=== PATIENT | female | born 1985 ===

== ENCOUNTER 2022-12-14 12:30 | Day surgery (SDC) | payer OTHER ==
[2022-12-14 12:40] LABS: HEMATOCRIT 38.9 % (36.0-45.00); HEMOGLOBIN 13.1 g/dL (12.0-15.00); MEAN CELL VOLUME 89.2 fL (80.00-100.00); MEAN CORPUSCULAR HGB CONC 33.6 g/dl (32.0-36.0); PLATELET COUNT 320 K/uL (150-450); RED BLOOD COUNT 4.37 M/uL (4.00-6.00); RED CELL DISTRIBUTION WIDTH 13.9 % (11.5-14.5)
[2022-12-14 13:18] LABS: INR 1.07; PARTIAL THROMBOPLASTIN TIME 28.4 SECONDS (22.0-34.0); PROTHROMBIN TIME 11.2 SECONDS (9.0-11.5)
== END 2022-12-14 17:50 | disposition home or self-care (01) ==
LOC: CIR.AMB 12:30
PROVIDERS: ATTEND Obstetrics & Gynecology Maternal & Fetal Medicine
DX: O02.1 Missed abortion (principal); O72.2 Delayed and secondary postpartum hemorrhage; Z20.822 Contact with and (suspected) exposure to COVID-19

== ENCOUNTER 2024-02-10 07:35 | Outpatient (CLI) | payer OTHER | END 2024-02-10 08:40 | disposition home or self-care (01) | LOC: NST 07:35 | PROVIDERS: ATTEND Obstetrics & Gynecology Gynecology | DX: Z34.83 Encounter for supervision of other normal pregnancy, third trimester (principal) ==

== ENCOUNTER 2024-02-13 07:59 | Outpatient (CLI) | payer OTHER | END 2024-02-13 08:37 | disposition home or self-care (01) | LOC: NST 07:59 | PROVIDERS: ATTEND Obstetrics & Gynecology Gynecology | DX: Z34.83 Encounter for supervision of other normal pregnancy, third trimester (principal) ==

== ENCOUNTER 2024-02-13 14:45 | Inpatient (IN) | payer OTHER ==
[~2024-02-13] VITALS: Ht 160 cm; Wt 68.0 kg
[2024-02-18 16:42] VITALS: BP 130/83
[2024-02-18 17:37] LABS: HEMATOCRIT 34.4 % (36.0-45.00); HEMOGLOBIN 11.9 g/dL (12.0-15.00); MEAN CELL VOLUME 88.2 fL (80.00-100.00); MEAN CORPUSCULAR HEMOGLOBIN 30.5 pg (27.00-32.0); MEAN CORPUSCULAR HGB CONC 34.6 g/dl (32.0-36.0); PLATELET COUNT 276 K/uL (150-450); RED CELL DISTRIBUTION WIDTH 13.9 % (11.5-14.5)
[2024-02-18 17:56] LABS: INR < 0.93; PROTHROMBIN TIME 10.1 SECONDS (9.0-11.5)
[2024-02-18 18:01] LABS: ALBUMIN 2.8 gm/dL (3.4-5.0); BILIRUBIN TOTAL 0.23 mg/dL (0.3-1.2); CREATININE SERUM 0.48 mg/dL (0.55-1.02); GFR 144.74; GLOBULINA 3.8 G/DL (2.4-3.5); POTASSIUM 4.26 mEq/L (3.5-5.1); TOTAL PROTEIN 6.6 gm/dL (6.4-8.2)
[2024-02-18] MEDS ORDERED: OBSTETRIX ONE1 EAC1 PO (20:38)
[2024-02-18] MEDS ORDERED: MISOPROSTOL 25 MCG TABLET VAG ONE (22:45)
[2024-02-18] MEDS ORDERED: RINGERS SOLUTION,LACTATED 1,000 ML IV SCH (23:15)
[2024-02-18 23:35] VITALS: BP 122/76
[2024-02-19 03:28] VITALS: BP 128/79
[2024-02-19 07:29] VITALS: BP 125/78
[2024-02-19] MEDS ORDERED: OXYTOCIN 500 ML IV SCH (09:00)
[2024-02-19 11:25] VITALS: BP 113/82
[2024-02-19] MEDS ORDERED: CEFAZOLIN SODIUM 1,000 MG VIAL IV SCH (16:30)
[2024-02-19] MEDS ORDERED: CITRIC ACID/SODIUM CITRATE 30 ML BLIST.PACK PO SCH (16:30)
[2024-02-19 16:38] VITALS: BP 104/57
[2024-02-19] MEDS ORDERED: MEPERIDINE HCL 25 MG/ML AMPUL IV ONE (21:40)
[2024-02-19] MEDS ORDERED: OXYTOCIN 10 UNITS/ML VIAL IV ONE (21:45)
[2024-02-19] MEDS ORDERED: ERYTHROMYCIN BASE OPHT 1GM EACH TUBE OP ONE (21:45)
[2024-02-19] MEDS ORDERED: MORPHINE SULFATE 4 MG/ML VIAL IV SCH (22:14)
[2024-02-19] MEDS ORDERED: MORPHINE SULFATE 4 MG/ML CARTRIDGE IV SCH (22:14)
[2024-02-19] MEDS ORDERED: MORPHINE SULFATE 4 MG/ML VIAL IV ONE (22:20)
[2024-02-20 01:10] VITALS: BP 120/76
[2024-02-20 06:42] LABS: HEMATOCRIT 35.7 % (36.0-45.00); HEMOGLOBIN 12.1 g/dL (12.0-15.00); MEAN CELL VOLUME 88.3 fL (80.00-100.00); MEAN CORPUSCULAR HEMOGLOBIN 29.9 pg (27.00-32.0); MEAN CORPUSCULAR HGB CONC 33.9 g/dl (32.0-36.0); PLATELET COUNT 254 K/uL (150-450); RED BLOOD COUNT 4.05 M/uL (4.00-6.00); RED CELL DISTRIBUTION WIDTH 13.5 % (11.5-14.5)
[2024-02-20 11:08] VITALS: BP 127/84
[2024-02-20] MEDS ORDERED: KETOROLAC TROMETHAMINE 30 MG VIAL IV SCH ×2 (12:00)
[2024-02-20 16:00] VITALS: BP 140/80
[2024-02-20] MEDS ORDERED: GABAPENTIN 300 MG CAPSULE PO PRN (16:30)
[2024-02-20] MEDS ORDERED: FF) RHO(D) IMMUNE GLOBULIN (POM) IM ONE (16:45)
[2024-02-20] MEDS ORDERED: ACETAMINOPHEN 500 MG GEL..CAP PO SCH (18:00)
[2024-02-20] MEDS ORDERED: IBUprofen 600 MG TABLET PO SCH (18:00)
[2024-02-21 01:18] VITALS: BP 102/67
[2024-02-21] MEDS ORDERED: OxyCODONE HCL 5 MG TABLET (ROXICODONE) PO PRN (06:00)
[2024-02-21 08:00] VITALS: BP 112/73
[2024-02-21] MEDS ORDERED: IBUprofen 400 MG TABLET PO SCH (09:00)
== END 2024-02-21 13:21 | disposition home or self-care (01) | DRG 788 ==
LOC: OB/GYN 02-18 14:45 → LDR 02-18 16:27 → OB/GYN 02-18 21:25
PROVIDERS: Obstetrics & Gynecology Gynecology; ADMIT Obstetrics & Gynecology Maternal & Fetal Medicine; ATTEND Obstetrics & Gynecology Maternal & Fetal Medicine
PROC: 3E0P7VZ Introduction of Hormone into Female Reproductive, Via Natural or Artificial Opening (ICD-10-PCS; 2024-02-18)
PROC: 4A1HXCZ Monitoring of Products of Conception, Cardiac Rate, External Approach (ICD-10-PCS; 2024-02-18)
PROC: 3E033VJ Introduction of Other Hormone into Peripheral Vein, Percutaneous Approach (ICD-10-PCS; 2024-02-19)
PROC: 10D00Z1 Extraction of Products of Conception, Low, Open Approach (ICD-10-PCS; principal; 2024-02-19 14:30)
DX: O61.0 Failed medical induction of labor (principal); Z3A.38 38 weeks gestation of pregnancy; Z37.0 Single live birth; Z20.822 Contact with and (suspected) exposure to COVID-19